=== PATIENT | male | born 1985 ===

== ENCOUNTER 2019-11-12 14:06 | Emergency (ER) | payer OTHER ==
[~2019-11-12] VITALS: Ht 182.9 cm; Wt 87.1 kg
== END 2019-11-12 15:32 | disposition left against medical advice (07) ==
LOC: ER 14:06
DX: M54.5 Low back pain (principal); G89.29 Other chronic pain; Z88.8 Allergy status to other drugs, medicaments and biological substances
CPT/HCPCS: 99283